=== PATIENT | male | born 1950 | race Caucasian/White ===

== ENCOUNTER 2016-06-10 01:38 | Emergency (ER) | payer OTHER ==
[2016-06-10] MEDS ORDERED: DECADRON IM ONE (02:05)
[2016-06-10] MEDS ORDERED: TORADOL IM ONE (02:05)
--- NOTE | 2016-06-10 02:07 | PROVIDER DOCUMENTATION ---
HPI-Musculoskeletal Pain/Inj - GENERAL Source: patient - HX OF PRESENT ILLNESS-MUSKULOSKELTAL Quality of Pain: reports: aching, cramping Severity in ED: moderate Onset/Duration: other ("couple nights ago") Timing: still present Modifying Factors: worse with: other (fully extended) Any recent injury?: No Similar Symptoms Previously?: No Recently seen or treated by another doctor?: No - LOWER EXTREMITY PAIN/INJURY Lower Extremities Pain: knee: right Context / Method of Injury: reports: unknown Associated Symptoms: denies: loss of bladder control, loss of bowel control, lower back pain, muscle spasms, numbness in legs/feet, sensory/motor loss, tingling in legs/feet, weakness in legs/feet <Alejandro Garcia - Last Filed: 06/10/16 01:59> <Eleazar Stover - Last Filed: 06/10/16 03:17> - GENERAL Chief Complaint: Extremity Pain Stated Complaint: RT KNEE PAIN Time Seen by Provider: 06/10/16 01:59 - HX OF PRESENT ILLNESS-MUSKULOSKELTAL Nature of Presenting Problem: Pt is a 65 yom who presents to ER with CC of R knee pain x"past several days." Pt reports that he has had trouble sleeping for the past couple of nights and was unable to sleep tonight due to his R knee pain. Pt reports that the pain is worse when his RLE is fully extended. Pt reports that he had bursitis 12 years ago, and reports that this pain is similar to then. (Alejandro Garcia) Review of Systems - Adult - REVIEW OF SYSTEMS - ADULT Constitutional: denies: chills, fever, fatique, night sweats, weight gain, weight loss Eyes: reports: no symptoms reported Ears, Nose, Mouth & Throat: reports: no symptoms reported Cardiovascular: denies: chest pain, edema, heart murmur, irregular heart rate, orthopnea, palpitations, poor circulation, PND, syncope Respiratory: denies: chronic cough, cough, dyspnea on exertion, excessive sputum production, hemoptysis, pleurisy, shortness of breath, wheezing Gastrointestinal: reports: no symptoms reported Genitourinary: reports: no symptoms reported Musculoskeletal: reports: frequent leg cramps, joint pain (R knee), joint swelling (R knee), muscle aches. denies: bone pain, back pain, muscle weakness , neck pain Integumentary: reports: no symptoms reported Neurological: reports: no symptoms reported Psychiatric: reports: no symptoms reported Endocrine: reports: no symptoms reported Hematologic/Lymphatic: reports: no symptoms reported Allergic/Immunologic: reports: no symptoms reported All Other Systems: Reviewed and Negative <Alejandro Garcia - Last Filed: 06/10/16 01:59> Past History - Adult - PAST MEDICAL HISTORY-ADULT Review of Records: reports: Nursing Assessment Review, Medications Reviewed - IMMUNIZATION STATUS Childhood Immunizations: See Nurse Assessment Flu Vaccine: See Nurse Assessment <Alejandro Garcia - Last Filed: 06/10/16 01:59> Physical Exam-Injury Related - Physical Exam-Injury Related Initial Vital Signs Reviewed: Yes General Appearance: appears well, alert, mild distress. negative: no apparent distress Respiratory: chest non-tender, lungs clear, normal breath sounds, no pleuratic chest pain, no respiratory distress, no accessory muscle use. negative: respiratory distress, decreased breath sounds, accessory muscle use, wheezing Cardiovascular: normal peripheral pulses, regular rate, rhythm. negative: bradycardia, tachycardia, irregularly irregular Chest/Breast: no masses/lumps, no tenderness. negative: tenderness Extremity: inflammation (R knee), swelling (mild R knee), tenderness (R knee), other (painful ROM in R knee). negative: normal range of motion, non-tender, normal gait, deformity, erythema Integumentary: normal color, warm/dry, swelling (R knee) Neurologic: grossly normal, no motor/sensory deficits Psych/Mental Status: normal mood/affect, normal thought content, normal thought process, oriented x 3 <Alejandro Garcia - Last Filed: 06/10/16 01:59> Progress <Alejandro Garcia - Last Filed: 06/10/16 01:59> - XRAY 1 XRAY Study: Knee (no fx) <Eleazar Stover - Last Filed: 06/10/16 03:17> - PLAN OF CARE/RESULTS Progress/Plan/Lab Results: POC: X-ray/blood (Alejandro Garcia) Departure <Alejandro Garcia - Last Filed: 06/10/16 01:59> - Departure Time of Disposition Order: 02:59 Certified Medical Emergency: Urgent <Eleazar Stover - Last Filed: 06/10/16 03:17> - Departure DIAGNOSIS: Knee pain, right anterior, Bursitis Disposition: HOME 01 Condition: Stable Additional Instructions: ED Follow Up Instructions: You have been treated by a care provider in the Emergency Department. These instructions are being provided to you so you can have an understanding of how to care for yourself upon discharge. Upon discharge from the Emergency Department, you are responsible for making arrangements for follow-up care by a physician of your choice. Take all prescribed medications as directed. Return to the Emergency Department immediately for any new or worsening symptoms. You may call the Physician Referral phone number at [phone] to obtain a list of Physicians who are taking new patients. Prescriptions: Methylprednisolone [Medrol Dosepak] 4 mg PO DIRECTED #1 package Ibuprofen/Hydrocodone [Vicoprofen 200/7.5 mg] 1 each PO Q4H PRN PRN #20 tablet PRN Reason: Pain Referrals: Neal Soriano MD [Primary Care Provider] - Denzel Oneal MD [STAFF PHYSICIAN] - Attestation - Scribe Verification/Attestation Scribe:: Alejandro Garcia Acting as Scribe for:: Eleazar Stover Scribe documention review:: This chart was documented by a scribe and accurately reflects the service the provider performed and the decisions made by the provider. <Alejandro Garcia - Last Filed: 06/10/16 01:59> Physician Attestation
[2016-06-10 02:52] LABS: MANUAL DIFF NEEDED? NO
[2016-06-10 02:53] LABS: BASO% 0.3 % (0.0-0.8); EOS# 0.26 X1000 (0.0-0.7); EOS% 3.3 % (0.0-10.0); HEMATOCRIT 38.3 % (42.0-52.0); HEMOGLOBIN 12.9 g/dL (14.0-18.0); LYMPH# 1.72 X1000 (1.2-3.4); LYMPH% 21.7 % (20.5-51.1); MCH 31.8 PG (27-31); MCHC 33.7 g/dL (33-37); MCV 94.3 FL (81-99); MONO# 0.79 X1000 (0.11-0.59); MPV 11.3 FL (7.4-10.4); NEUT% 64.7 % (42.2-75.2); PLT 132 X1000 (130-400); RBC 4.06 XMIL (4.7-6.1)
[2016-06-10] MEDS ORDERED: PERCOCET-10 PO ONE (02:58)
[2016-06-10] MEDS ORDERED: MOTRIN PO ONE (02:59)
[2016-06-10 03:08] LABS: AGAP 13; ALBUMIN 3.6 g/dL (3.5-5.0); ALKALINE PHOSPHATASE 68 U/L (32-122); BUN 14 mg/dL (8-22); CALCIUM 8.6 mg/dL (8.8-10.2); CHLORIDE 104 mmol/L (98-107); COSMO 282; GOT 19 U/L (10-34); GPT 18 U/L (10-44); POTASSIUM 4.5 mmol/L (3.5-5.1); SODIUM 140 mmol/L (136-145); TCO2 23 mmol/L (25-35); TOTAL BILIRUBIN 0.56 mg/dL (0.20-1.00); TOTAL PROTEIN 5.9 g/dL (6.3-8.3)
[2016-06-10 03:41] VITALS: BP 146/78
--- NOTE | 2016-06-10 11:38 | Diag Imaging Result Document ---
PROCEDURE NAME: KNEE 3 VIEWS RIGHT - 06/10/2016 PLAIN RADIOGRAPH OF THE RIGHT KNEE, 3 VIEWS: COMPARISON: None available. FINDINGS: There is no discrete fracture, dislocation, or intrinsic osseous lesion. The visualized joint spaces are essentially unremarkable. The surrounding soft tissues are grossly unremarkable. IMPRESSION: No evidence of acute osseous abnormality.
== END 2016-06-10 03:42 | disposition home or self-care (01) ==
LOC: ED 01:38
DX: M70.51 Other bursitis of knee, right knee (principal); M25.561 Pain in right knee; R25.2 Cramp and spasm; M25.461 Effusion, right knee; Z79.82 Long term (current) use of aspirin; Z79.899 Other long term (current) drug therapy
CPT/HCPCS: 80053; 84550; 85025; J1885